=== PATIENT | male | born 1945 | race Caucasian/White ===

== ENCOUNTER → 2016-06-05 | Outpatient (CLI) | payer MEDICARE ==
[~2016-06-05] MED LIST: ALLEGRA-D 12 H1 EACH PO; ASPIR 8181 MG PO; HYDROCHLOROTHIA50 MG PO; LISINOPRIL20 MG PO; PERCOCET 7.5-31 EACH PO
[2016-06-05 09:40] LABS: HEMOGLOBIN 14.9 gm/dl (14.0-17.5); RED BLOOD COUNT 5.03 M/UL (4.20-5.50); WHITE BLOOD COUNT 5.4 K/UL (4.5-11.0)
[2016-06-05 10:00] LABS: BUN/CREATININE RATIO 20 (0-10)
== END ==
LOC: OPSV2 08:49
PROVIDERS: Orthopaedic Surgery
DX: Z01.812 Encounter for preprocedural laboratory examination (principal); T84.84XA Pain due to internal orthopedic prosthetic devices, implants and grafts, initial encounter; Z88.0 Allergy status to penicillin
CPT/HCPCS: 36415; 80048; 85027; 93005

== ENCOUNTER → 2016-06-14 | Day surgery (SDC) | payer MEDICARE | END | disposition home or self-care (01) | LOC: OR 09:40 | PROVIDERS: Orthopaedic Surgery | PROC: 0QPM04Z Removal of Internal Fixation Device from Left Tarsal, Open Approach (ICD-10-PCS; principal; 2016-06-14 11:45) | DX: T84.84XA Pain due to internal orthopedic prosthetic devices, implants and grafts, initial encounter (principal); J43.9 Emphysema, unspecified; I10 Essential (primary) hypertension; I25.10 Atherosclerotic heart disease of native coronary artery without angina pectoris; N40.0 Benign prostatic hyperplasia without lower urinary tract symptoms; G25.81 Restless legs syndrome; Z87.01 Personal history of pneumonia (recurrent); Z87.891 Personal history of nicotine dependence; Z82.49 Family history of ischemic heart disease and other diseases of the circulatory system; Z88.0 Allergy status to penicillin; Z79.899 Other long term (current) drug therapy; Z90.49 Acquired absence of other specified parts of digestive tract; Z98.890 Other specified postprocedural states | CPT/HCPCS: 73600; 76000; J2250; J3010; J3370; J7070; J7120 ==

== ENCOUNTER 2021-04-15 16:11 | Emergency (ER) | payer MEDICARE ==
[~2021-04-15] VITALS: Ht 175.3 cm; Wt 97.1 kg
[~2021-04-15 16:11] MED LIST changes: +ZITHROMAX250 MG PO
[2021-04-15 16:51] LABS: HEMOGLOBIN 14.7 gm/dl (14.0-17.5); RED BLOOD COUNT 5.04 M/UL (4.20-5.50)
[2021-04-15 17:20] LABS: BUN/CREATININE RATIO 20 (0-10)
[2021-04-16 09:28] LABS: RED BLOOD COUNT 4.84 M/UL (4.20-5.50); WHITE BLOOD COUNT 7.4 K/UL (4.5-11.0)
[2021-04-16] MEDS ORDERED: IPRAT-ALBUT 0.5-3 ML NEB (14:16)
[2021-04-16] MEDS ORDERED: CRESTOR5 MG PO (14:16)
[2021-04-16] MEDS ORDERED: ASPIRIN EC81 MG PO (14:17)
[2021-04-16] MEDS ORDERED: CLARITIN10 MG PO (14:17)
[2021-04-16] MEDS ORDERED: LOPRESSOR 25 MG25 MG PO (14:17)
[2021-04-16] MEDS ORDERED: HYDROCHLOROTHIA50 MG PO (14:17)
[2021-04-16] MEDS ORDERED: LANTUS SOL100 UNIT/1 SQ (18:38)
[2021-04-16] MEDS ORDERED: HUMALOG100 UNIT/3 SC (18:38)
== END 2021-04-16 19:16 | disposition home or self-care (01) ==
LOC: ER1 16:11 → CDU 19:24 → ER1 19:24
PROVIDERS: Emergency Medicine; Internal Medicine
DX: R73.9 Hyperglycemia, unspecified (principal); I10 Essential (primary) hypertension; Z20.822 Contact with and (suspected) exposure to COVID-19; E78.5 Hyperlipidemia, unspecified; N17.9 Acute kidney failure, unspecified; Z88.0 Allergy status to penicillin; E87.1 Hypo-osmolality and hyponatremia; J44.9 Chronic obstructive pulmonary disease, unspecified; Z95.2 Presence of prosthetic heart valve; F17.220 Nicotine dependence, chewing tobacco, uncomplicated
CPT/HCPCS: 71045; 80053; 81001; 82009; 82550; 82553; 82962; 83036; 83735; 83874; 84484; 85025; 93005; 96372; 96374; 99285; J1650; J7030; U0002